=== PATIENT | female | born 1950 | race Hispanic/Latino ===

== ENCOUNTER 2017-12-03 07:30 | Day surgery (SDC) | payer OTHER ==
[2017-12-01 11:00] LABS: BASOPHILS % (AUTO) 0.5 % (0.0-5.0); EOSINOPHILS % (AUTO) 1.2 % (0.0-8.0); HEMATOCRIT 31.1 % (36-48); LYMPHOCYTES % (AUTO) 19.4 % (21.0-51.0); MEAN CORPUSCULAR HEMOGLOBIN 29.8 pg (27.0-33.0); MEAN CORPUSCULAR HGB CONC 34.9 g/dL (32.0-36.0); MEAN CORPUSCULAR VOLUME 85.2 fL (79-99); MONOCYTES % (AUTO) 6.5 % (3.0-13.0); NEUTROPHILS % (AUTO) 72.4 % (40.0-77.0); PLATELET COUNT (AUTO) 157 K/uL (130-400); RED BLOOD CELL COUNT(AUTO) 3.65 MIL/uL (4.00-5.50); RED CELL DISTRIBUTION WIDTH 18.2 % (11.0-15.5); WHITE BLOOD COUNT (AUTO) 6.2 K/uL (4.8-10.8)
[2017-12-01 11:15] LABS: ALBUMIN 3.2 g/dL (3.5-5.0); BILIRUBIN,TOTAL 0.4 mg/dL (0.2-1.0); CREATININE 2.3 mg/dL (0.5-1.5); POTASSIUM 5.3 mmol/L (3.5-5.1)
[2017-12-01 11:48] LABS: INR 1.15 (0.85-1.15)
[~2017-12-03] VITALS: Ht 154.9 cm; Wt 67.4 kg
[~2017-12-03 07:30] MED LIST: ATOR20TA65 PO; CEPH500T PO; CHLO25TA3 PO; FENO145T37 PO; INSU3INS3 SQ; LISI40TA4 PO; PANT40TA25 PO; PREMC VG; SODIUM CHLORIDE 0.9% 1000ML 1,000 ML IV ONE
[2017-12-03 08:26] VITALS: BP 128/60
[2017-12-03] MEDS ORDERED: CITA10TA13 PO (08:52)
[2017-12-03] MEDS ORDERED: PIND10TA2 PO (08:52)
[2017-12-03] MEDS ORDERED: MULT-685 PO (08:52)
[2017-12-03] MEDS ORDERED: ERGO80004 PO (08:52)
[2017-12-03] MEDS ORDERED: ASPI-1197 PO (08:53)
[2017-12-03] MEDS ORDERED: LEVO5TAB13 PO (08:58)
[2017-12-03] MEDS ORDERED: THIAM100TB PO (08:58)
[2017-12-03] MEDS ORDERED: FENO145T37 PO (08:58)
[2017-12-03] MEDS ORDERED: LACT10SO8 PO (08:58)
[2017-12-03] MEDS ORDERED: FURO40TA5 PO (08:58)
[2017-12-03] MEDS ORDERED: GABA-529 PO (08:58)
[2017-12-03] MEDS ORDERED: PROPOFOL 10 MG/ML 20ML VIAL IV ONE ×2 (09:42)
== END 2017-12-03 10:35 | disposition home or self-care (01) ==
LOC: DAH 07:30
PROVIDERS: ATTEND Internal Medicine
DX: K29.50 Unspecified chronic gastritis without bleeding (principal); K21.0 Gastro-esophageal reflux disease with esophagitis; R19.7 Diarrhea, unspecified; L53.8 Other specified erythematous conditions; E78.4 Other hyperlipidemia; I10 Essential (primary) hypertension; M19.90 Unspecified osteoarthritis, unspecified site; K31.9 Disease of stomach and duodenum, unspecified; R93.8 Abnormal findings on diagnostic imaging of other specified body structures; E11.65 Type 2 diabetes mellitus with hyperglycemia; E66.9 Obesity, unspecified; E11.51 Type 2 diabetes mellitus with diabetic peripheral angiopathy without gangrene; Z79.82 Long term (current) use of aspirin; Z90.49 Acquired absence of other specified parts of digestive tract; Z85.42 Personal history of malignant neoplasm of other parts of uterus; Z80.0 Family history of malignant neoplasm of digestive organs; Z86.010 Personal history of colon polyps; Z90.710 Acquired absence of both cervix and uterus; Z79.899 Other long term (current) drug therapy; Z98.890 Other specified postprocedural states
CPT/HCPCS: 36415; 43239; 80053; 82105; 82948 ×2; 85025; 85610; 88305; 88312; 93005; A4606; J2704 ×2; J7030

== ENCOUNTER 2019-03-19 05:30 | Day surgery (SDC) | payer OTHER ==
[~2019-03-19] VITALS: Ht 157.5 cm; Wt 90.7 kg
[~2019-03-19 05:30] MED LIST changes: +ASPI-1197 PO; -ATOR20TA65 PO; +CALC-877 PO; -CEPH500T PO; -CHLO25TA3 PO; +CHOL100040 PO; +CITA10TA13 PO; +ERGO800010 PO; +FERR-63 PO; +FOLI1TAB85 PO; +FURO40TA5 PO; +GABA-529 PO; -INSU3INS3 SQ; +LACT10SO8 PO; +LEVO5TAB13 PO; -LISI40TA4 PO; +METO25TA6 PO; +MULT-685 PO; +OMEP-272 PO; -PANT40TA25 PO; +PIND10TA2 PO; -PREMC VG; +RIFA550T PO; +SODI650T PO; -SODIUM CHLORIDE 0.9% 1000ML 1,000 ML IV ONE; +SUCR1TAB2 PO; +THIAM100TB PO; +TRAM50TA4 PO
[2019-03-19] MEDS ORDERED: SODIUM CHLORIDE 0.9% 1000ML 1,000 ML IV ONE (05:45)
[2019-03-19 06:33] VITALS: BP 175/53
[2019-03-19] MEDS ORDERED: PROPOFOL 10 MG/ML 20ML VIAL IV ONE (07:32)
[2019-03-19 07:40] VITALS: BP 124/33
[2019-03-19 07:45] VITALS: BP 121/58
[2019-03-19 07:50] VITALS: BP 139/48
[2019-03-19 07:55] VITALS: BP 138/40
[2019-03-19 08:07] VITALS: BP 153/70
== END 2019-03-19 08:07 | disposition home or self-care (01) ==
LOC: ENDO 05:30 → DAH 05:30 → ENDO 08:07
PROVIDERS: ATTEND Internal Medicine
DX: K29.50 Unspecified chronic gastritis without bleeding (principal); I85.00 Esophageal varices without bleeding; K31.89 Other diseases of stomach and duodenum; K76.6 Portal hypertension; I12.9 Hypertensive chronic kidney disease with stage 1 through stage 4 chronic kidney disease, or unspecified chronic kidney disease; N18.9 Chronic kidney disease, unspecified; I25.10 Atherosclerotic heart disease of native coronary artery without angina pectoris; E11.9 Type 2 diabetes mellitus without complications; E78.5 Hyperlipidemia, unspecified; M19.90 Unspecified osteoarthritis, unspecified site; K21.9 Gastro-esophageal reflux disease without esophagitis; Z91.011 Allergy to milk products; Z79.01 Long term (current) use of anticoagulants; Z79.899 Other long term (current) drug therapy; Z86.010 Personal history of colon polyps; Z85.42 Personal history of malignant neoplasm of other parts of uterus; Z90.710 Acquired absence of both cervix and uterus; Z90.49 Acquired absence of other specified parts of digestive tract; Z98.890 Other specified postprocedural states; Z80.0 Family history of malignant neoplasm of digestive organs; Z82.49 Family history of ischemic heart disease and other diseases of the circulatory system
CPT/HCPCS: 43239; 82948 ×2; 88305; A4606; J2704; J7030